=== PATIENT | male | born 1980 | race Two or more races ===

== ENCOUNTER 2024-10-23 00:49 | Emergency (ER) | payer OTHER ==
[~2024-10-23] VITALS: Ht 175.3 cm; Wt 100.0 kg
[2024-10-23 02:00] VITALS: BP 133/65; PULSE 77; RESP 16; TEMP 98.4; O2SAT 94
[2024-10-23] MEDS: ACETAMINOPHEN 500 MG TABLET PO ONE (02:08)
== END 2024-10-23 02:23 ==
LOC: EMS 01:06
DX: S00.83XA Contusion of other part of head, initial encounter (principal); S09.90XA Unspecified injury of head, initial encounter; Z88.5 Allergy status to narcotic agent; Z88.6 Allergy status to analgesic agent; Z98.890 Other specified postprocedural states; Y04.0XXA Assault by unarmed brawl or fight, initial encounter; Y93.89 Activity, other specified; Y92.89 Other specified places as the place of occurrence of the external cause; Y99.8 Other external cause status
CPT/HCPCS: 70450; 70486; 72125; 99284